=== PATIENT | female | born 1990 | race African-American/Black ===

== ENCOUNTER 2018-05-18 13:10 | Emergency (ER) | payer OTHER, MEDICAID, SELFPAY ==
[2018-05-18 13:14] VITALS: BP 136/78; PULSE 84; RESP 15; TEMP 36.9; O2SAT 97; BMI 26.2
--- NOTE | 2018-05-18 13:48 | ED.EAR ---
HPI - Ear Problem <LAZ Dupree - Last Filed: 05/18/18 13:59> General Chief complaint: Ear Stated complaint: ear ache Time Seen by Provider: 05/18/18 13:42 Source: patient Mode of arrival: ambulatory Limitations: no limitations History of Present Illness HPI Narrative: Patient is a 22 week 28-year-old female who presents with chief complaint of right ear pain. She has had cough and congestion and cold symptoms for the past few days and woke up with it hearing changes and pain in her right ear. She denies any fevers, nausea, vomiting, diarrhea or abdominal pain. She states she has not taken anything for the pain. She has not taken Tylenol. She took DayQuil throughout her recent cold illness. No discharge noted from her right ear. Patient denies pain in her left ear. Related Data Previous Rx's Medication Instructions Recorded amoxicillin 875 mg PO BID #20 tab 05/18/18 Allergies Allergy/AdvReac Type Severity Reaction Status Date / Time No Known Drug Allergies Allergy Verified 05/18/18 13:14 Review of Systems <LAZ Dupree - Last Filed: 05/18/18 13:59> Review of Systems GENERAL: Denies chills, fatigue, malaise, fever, sweats. HEENT: See HPI RESPIRATORY: Denies dyspnea, cough, wheezing, hemoptysis, sputum. CARDIOVASCULAR: Denies chest pain, palpitations, orthopnea, edema, GASTROINTESTINAL: Denies nausea, vomiting, abdominal pain, diarrhea, constipation, melena. : Denies dysuria, frequency, incontinence, hematuria, urinary retention. MUSCULOSKELETAL: denies weakness, joint pain, or bony pain SKIN: Denies rash, skin lesions, or other NEUROLOGIC: Denies weakness, headache, numbness, change in speech, confusion, seizures, incoordination. PSYCHIATRIC: No concerning psychosocial issues. 12 point review of systems is negative except for those stated above Exam <LAZ Dupree - Last Filed: 05/18/18 13:59> Narrative Exam Narrative: GENERAL: This is a well-nourished, well-developed patient, in no acute distress HEAD: Atraumatic. Normocephalic. No temporal or scalp tenderness. EYES: Pupils equal round and reactive. Extraocular motions intact. No scleral icterus. No injection or drainage. ENT: Nose without bleeding, purulent drainage or septal hematoma. Throat without erythema, tonsillar hypertrophy or exudate. Uvula midline. Airway patent. Right TM bulging and erythematous. Left TM pearly ovalle. Bilateral canals within normal limits. NECK: Trachea midline. No JVD or lymphadenopathy. Supple, nontender, no meningeal signs. CARDIOVASCULAR: Regular rate and rhythm without murmurs, gallops, or rubs. RESPIRATORY: Clear to auscultation. Breath sounds equal bilaterally. No wheezes, rales, or rhonchi. GASTROINTESTINAL: Abdomen soft, non-tender, nondistended. EXTREMITIES: No clubbing, cyanosis, or edema. No joint tenderness, effusion, or edema noted. BACK: Nontender without deformity or crepitance. No flank tenderness. NEURO: AOx3. SKIN: No rash or erythema. Initial Vital Signs Initial Vital Signs: Vital Signs Temperature 98.5 F 05/18/18 13:14 Pulse Rate 84 05/18/18 13:14 Respiratory Rate 15 05/18/18 13:14 Blood Pressure 136/78 05/18/18 13:14 Pulse Oximetry 97 05/18/18 13:14 <Kera Coto DO - Last Filed: 05/21/18 08:52> Initial Vital Signs Initial Vital Signs: Vital Signs Temperature 98.5 F 05/18/18 13:14 Pulse Rate 84 05/18/18 13:14 Respiratory Rate 15 05/18/18 13:14 Blood Pressure 136/78 05/18/18 13:14 Pulse Oximetry 97 05/18/18 13:14 Course <ODELL Dupree-BC - Last Filed: 05/18/18 13:59> Course Narrative: Of note the 1st time I went to evaluate the patient, she had disappeared from her chair in the hallway. Nobody was able to locate the patient. She later came back stating that she had ?second thoughts? about being seen today as ?you do not love me because I am in the hallway.? I discussed with her that the emergency department was full at this time and stated that she could either be seen in the hallway or wait in the waiting room for room to open up. She elected to be evaluated in the hallway. Vital Signs - 8 hr 05/18/18 13:14 Temperature 98.5 F Pulse Rate 84 Respiratory Rate 15 Blood Pressure 136/78 Pulse Oximetry 97 <Kera Coto DO - Last Filed: 05/21/18 08:52> Vital Signs - 8 hr 05/18/18 13:14 Temperature 98.5 F Pulse Rate 84 Respiratory Rate 15 Blood Pressure 136/78 Pulse Oximetry 97 Medical Decision Making <Kera Kimberlyn ENVIRONMENTAL REMEDIATION CONSULTANT-BC - Last Filed: 05/18/18 13:59> MDM Narrative Medical decision making narrative: The patient is a 22 week 28-year-old female who presents with sudden onset of right ear pain after several days of cold symptoms. Exam indicates otitis media given her bulging erythematous tympanic membrane. I am starting her on amoxicillin for this. This is a category B medication. Patient states she has tolerated it before. I encouraged [id number] Tylenol as needed for pain. Patient no questions or concerns upon discharge. I suggested follow-up with primary care provider if worsening or no improvement. Discussed return precautions of not being able to take fluids or any acute concerns. Discharge Plan Departure Patient Disposition: Home Clinical Impression: Acute right otitis media Discharge Date/Time: 05/18/18 14:05 Interventions: ED Discharge Assessment Last Done: 05/18/18 14:04 Instructions: Ear Infections (Alternative Therapy), Middle Ear Infection Activity Restrictions/Additional Instructions: I am treating you for an ear infection today with amoxicillin. This is a class B medication for . Please use [id number] Tylenol and warm compresses to her ear for pain as needed. Please monitor for fever, worsening or no improvement. Feel free to follow up with her primary care provider if necessary or come back to the emergency department for urgent matters. Prescriptions: New amoxicillin 875 mg tablet 875 mg PO BID Qty: 20 RF: 0 <Kera Coto DO - Last Filed: 05/21/18 08:52> Cosign ED Attending Cosignature Attestation: I was immediately available in the department for consultation. This documentation has been reviewed and I agree with assessment and plan. Supervised by Kera Coto DO
--- NOTE | 2018-05-18 13:54 | ED_ITS ---
HPI - Ear Problem <LAZ Dupree - Last Filed: 05/18/18 13:59> General Chief complaint: Ear Stated complaint: ear ache Time Seen by Provider: 05/18/18 13:42 Source: patient Mode of arrival: ambulatory Limitations: no limitations History of Present Illness HPI Narrative: Patient is a 22 week 28-year-old female who presents with chief complaint of right ear pain. She has had cough and congestion and cold symptoms for the past few days and woke up with it hearing changes and pain in her right ear. She denies any fevers, nausea, vomiting, diarrhea or abdominal pain. She states she has not taken anything for the pain. She has not taken Tylenol. She took DayQuil throughout her recent cold illness. No discharge noted from her right ear. Patient denies pain in her left ear. Related Data Previous Rx's Medication Instructions Recorded amoxicillin 875 mg PO BID #20 tab 05/18/18 Allergies Allergy/AdvReac Type Severity Reaction Status Date / Time No Known Drug Allergies Allergy Verified 05/18/18 13:14 Review of Systems <LAZ Dupree - Last Filed: 05/18/18 13:59> Review of Systems GENERAL: Denies chills, fatigue, malaise, fever, sweats. HEENT: See HPI RESPIRATORY: Denies dyspnea, cough, wheezing, hemoptysis, sputum. CARDIOVASCULAR: Denies chest pain, palpitations, orthopnea, edema, GASTROINTESTINAL: Denies nausea, vomiting, abdominal pain, diarrhea, constipation, melena. : Denies dysuria, frequency, incontinence, hematuria, urinary retention. MUSCULOSKELETAL: denies weakness, joint pain, or bony pain SKIN: Denies rash, skin lesions, or other NEUROLOGIC: Denies weakness, headache, numbness, change in speech, confusion, seizures, incoordination. PSYCHIATRIC: No concerning psychosocial issues. 12 point review of systems is negative except for those stated above Exam <LAZ Dupree - Last Filed: 05/18/18 13:59> Narrative Exam Narrative: GENERAL: This is a well-nourished, well-developed patient, in no acute distress HEAD: Atraumatic. Normocephalic. No temporal or scalp tenderness. EYES: Pupils equal round and reactive. Extraocular motions intact. No scleral icterus. No injection or drainage. ENT: Nose without bleeding, purulent drainage or septal hematoma. Throat without erythema, tonsillar hypertrophy or exudate. Uvula midline. Airway patent. Right TM bulging and erythematous. Left TM pearly ovalle. Bilateral canals within normal limits. NECK: Trachea midline. No JVD or lymphadenopathy. Supple, nontender, no meningeal signs. CARDIOVASCULAR: Regular rate and rhythm without murmurs, gallops, or rubs. RESPIRATORY: Clear to auscultation. Breath sounds equal bilaterally. No wheezes , rales, or rhonchi. GASTROINTESTINAL: Abdomen soft, non-tender, nondistended. EXTREMITIES: No clubbing, cyanosis, or edema. No joint tenderness, effusion, or edema noted. BACK: Nontender without deformity or crepitance. No flank tenderness. NEURO: AOx3. SKIN: No rash or erythema. Initial Vital Signs Initial Vital Signs: Vital Signs Temperature 98.5 F 05/18/18 13:14 Pulse Rate 84 05/18/18 13:14 Respiratory Rate 15 05/18/18 13:14 Blood Pressure 136/78 05/18/18 13:14 Pulse Oximetry 97 05/18/18 13:14 <Kera Coto DO - Last Filed: 05/21/18 08:52> Initial Vital Signs Initial Vital Signs: Vital Signs Temperature 98.5 F 05/18/18 13:14 Pulse Rate 84 05/18/18 13:14 Respiratory Rate 15 05/18/18 13:14 Blood Pressure 136/78 05/18/18 13:14 Pulse Oximetry 97 05/18/18 13:14 Course <ODELL Dupree-BC - Last Filed: 05/18/18 13:59> Course Narrative: Of note the 1st time I went to evaluate the patient, she had disappeared from her chair in the hallway. Nobody was able to locate the patient. She later came back stating that she had ?second thoughts? about being seen today as ?you do not love me because I am in the hallway.? I discussed with her that the emergency department was full at this time and stated that she could either be seen in the hallway or wait in the waiting room for room to open up. She elected to be evaluated in the hallway. Vital Signs - 8 hr 05/18/18 13:14 Temperature 98.5 F Pulse Rate 84 Respiratory Rate 15 Blood Pressure 136/78 Pulse Oximetry 97 <Kera Coto DO - Last Filed: 05/21/18 08:52> Vital Signs - 8 hr 05/18/18 13:14 Temperature 98.5 F Pulse Rate 84 Respiratory Rate 15 Blood Pressure 136/78 Pulse Oximetry 97 Medical Decision Making <Kera Kimberlyn CIVIL STRUCTURAL ENGINEER-BC - Last Filed: 05/18/18 13:59> MDM Narrative Medical decision making narrative: The patient is a 22 week 28-year- old female who presents with sudden onset of right ear pain after several days of cold symptoms. Exam indicates otitis media given her bulging erythematous tympanic membrane. I am starting her on amoxicillin for this. This is a category B medication. Patient states she has tolerated it before. I encouraged [id number] Tylenol as needed for pain. Patient no questions or concerns upon discharge. I suggested follow-up with primary care provider if worsening or no improvement. Discussed return precautions of not being able to take fluids or any acute concerns. Discharge Plan Departure Patient Disposition: Home Clinical Impression: Acute right otitis media Discharge Date/Time: 05/18/18 14:05 Interventions: ED Discharge Assessment Last Done: 05/18/18 14:04 Instructions: Ear Infections (Alternative Therapy), Middle Ear Infection Activity Restrictions/Additional Instructions: I am treating you for an ear infection today with amoxicillin. This is a class B medication for . Please use [id number] Tylenol and warm compresses to her ear for pain as needed. Please monitor for fever, worsening or no improvement. Feel free to follow up with her primary care provider if necessary or come back to the emergency department for urgent matters. Prescriptions: New amoxicillin 875 mg tablet 875 mg PO BID Qty: 20 RF: 0 <Kera Coto DO - Last Filed: 05/21/18 08:52> Cosign ED Attending Cosignature Attestation: I was immediately available in the department for consultation. This documentation has been reviewed and I agree with assessment and plan. Supervised by Kera Coto DO
--- NOTE | 2018-05-18 13:55 | PC.NURSE ---
Pt left ED without informing staff. Shortly after,pt returned. She stated that she didn't think that we loved her because she was sitting in the hallway. At triage I told her that we didn't have any rooms open but I had a seat in the hallway that she could sit in to get seen by the provider so that we could get her home as quickly as possible.
== END 2018-05-18 14:05 | disposition home or self-care (01) ==
PROVIDERS: Emergency Provider Nurse Practitioner Family
DX: H66.91 Otitis media, unspecified, right ear (principal)
CPT/HCPCS: 99281; 99282; 99283